=== PATIENT | female | born 1990 | race Caucasian/White ===

== ENCOUNTER 2018-09-28 12:07 | Outpatient (CLI) | payer OTHER ==
[2018-09-30] MEDS ORDERED: ASPIR 8181 MG PO (16:49)
[2018-09-30] MEDS ORDERED: PRENATAL TABLE1 EAC2 PO (16:50)
== END 2018-09-29 17:09 | disposition home or self-care (01) ==
LOC: OBS/DEL 12:07
DX: O13.3 Gestational [pregnancy-induced] hypertension without significant proteinuria, third trimester (principal); O26.853 Spotting complicating pregnancy, third trimester; Z34.03 Encounter for supervision of normal first pregnancy, third trimester

== ENCOUNTER 2018-09-30 13:16 | Inpatient (IN) | payer OTHER ==
[~2018-09-30] VITALS: Ht 160 cm; Wt 2.3 kg
[2018-09-30] MEDS ORDERED: ASPIR 8181 MG PO (16:49)
[2018-09-30] MEDS ORDERED: PRENATAL TABLE1 EAC2 PO (16:50)
== END 2018-10-02 10:49 | disposition home or self-care (01) | DRG 807 ==
LOC: OB/GYN 13:16 → LDR 13:16 → OB/GYN 19:53
PROVIDERS: ADMIT Obstetrics & Gynecology
PROC: 10E0XZZ Delivery of Products of Conception, External Approach (ICD-10-PCS; principal; 2018-09-30)
PROC: 4A1HXCZ Monitoring of Products of Conception, Cardiac Rate, External Approach (ICD-10-PCS; 2018-09-30)
DX: O80 Encounter for full-term uncomplicated delivery (principal); Z37.0 Single live birth; Z3A.35 35 weeks gestation of pregnancy